=== PATIENT | female | born 1970 | race Caucasian/White ===

== ENCOUNTER → 2016-11-16 | Outpatient (CLI) | payer OTHER ==
--- NOTE | 2016-11-16 15:49 | RAD ---
DATE: 11/16/2016 EXAM: DIGITAL SCREEN BILAT W/CAD HISTORY: Screening study. COMPARISON: 01/02/2012 This study was interpreted with the benefit of Computerized Aided Detection (CAD). The breast parenchyma is heterogeneously dense, which could reduce sensitivity of mammography. Breast parenchyma level C. FINDINGS: Digital MLO and CC mammograms of both breasts were obtained. Comparison study is dated 01/02/2012. The breast parenchyma is heterogeneously dense which can obscure a lesion on mammography (breast density code C). No spiculated mass is seen. No malignant appearing calcification or area of architectural distortion is noted. A nodular area is seen within the lower inner quadrant of the left breast which is new since the previous examination. Further evaluation with spot compression MLO, CC and true lateral mammograms left breast is recommended. IMPRESSION: A nodular area is seen within the lower inner quadrant of the left breast which is new since the previous examination. Further evaluation with spot compression CC, MLO as well as true lateral mammograms of the left breast is recommended. BI-RADS CATEGORY: 0 INCOMPLETE: NEEDS ADDITIONAL IMAGING EVALUATION AND/OR PRIOR MAMMOGRAMS FOR COMPARISON. RECOMMENDED FOLLOW-UP: ADD ADDITIONAL IMAGING PQRS compliance statement: Patient information was entered into a reminder system with a target due date of now for the next mammogram. Mammography is a sensitive method for finding small breast cancers, but it does not detect them all and is not a substitute for careful clinical examination. A negative mammogram does not negate a clinically suspicious finding and should not result in delay in biopsying a clinically suspicious abnormality. "Our facility is accredited by the [employer] Mammography [employer]."
== END | disposition home or self-care (01) ==
LOC: MAMMO 09:15
PROVIDERS: ATTEND Nurse Practitioner
DX: Z12.31 Encounter for screening mammogram for malignant neoplasm of breast (principal)
CPT/HCPCS: G0202; 77067

== ENCOUNTER → 2016-11-22 | Outpatient (CLI) | payer OTHER ==
--- NOTE | 2016-11-22 12:03 | RAD ---
DATE: 11/22/2016 EXAM: DIGITAL DIAGNOSTIC LT, BREAST LEFT HISTORY: Suspicious screening study COMPARISON: 11/16/2016 This study was interpreted with the benefit of Computerized Aided Detection (CAD). The breast parenchyma is heterogeneously dense, which could reduce sensitivity of mammography. Breast parenchyma level C. FINDINGS: Additional views of the left breast were obtained including 3-D tomosynthesis images in CC and straight ML projections. They confirm the presence of an oval-shaped smooth, superficial nodule at the 7:00 location. It measures approximately 16 mm in greatest dimension on the straight mediolateral view. There are no associated microcalcifications. The fibroglandular tissues in other portions of the left breast are heterogeneous and somewhat nodular in character. Left breast ultrasound, 11/22/2016: A targeted ultrasound exam the left breast was performed. At the 7:00 location there is a small superficial nodule measuring approximately 12 cm in greatest diameter. It contains small cystic-appearing areas as well as intervening tissue of medium echogenicity. There is color flow within this nodule. This appears to correspond in location to the mammographic abnormality. IMPRESSION: Small complex left breast nodule at the 7:00 location as described above. Ultrasound-guided biopsy is suggested for further evaluation. Note: The patient was advised of our recommendation for biopsy by the food technologist at the time of the exam. She will follow-up with the ordering physician. BI-RADS CATEGORY: 4 SUSPICIOUS ABNORMALITY- BIOPSY SHOULD BE CONSIDERED RECOMMENDED FOLLOW-UP: BIO BIOPSY RECOMMENDED PQRS compliance statement: Patient information was entered into a reminder system with a target due date for the next mammogram. Mammography is a sensitive method for finding small breast cancers, but it does not detect them all and is not a substitute for careful clinical examination. A negative mammogram does not negate a clinically suspicious finding and should not result in delay in biopsying a clinically suspicious abnormality. "Our facility is accredited by the [employer] Mammography [employer]."
== END | disposition home or self-care (01) ==
LOC: MAMMO 09:41
PROVIDERS: ATTEND Nurse Practitioner
DX: N63 Unspecified lump in breast (principal)
CPT/HCPCS: 76641; G0206; 77065